=== PATIENT | female | born 1945 | race Caucasian/White ===

== ENCOUNTER → 2017-08-05 | Outpatient (CLI) | payer OTHER, MEDICARE ==
[~2017-08-05] VITALS: Ht 149.9 cm; Wt 49.9 kg
[~2017-08-05] MED LIST: CENTRUM SILVER1 EAC4 PO
--- NOTE | ~2017-08-05 | P ---
[facility] [place] [address] PROCEDURE REPORT Name: ARMINDA SUBRAMANIAN Room #: REG [facility]#: [id number] Admission: 08/05/17 Attend Phys: Mark Almazan Discharge: Date of : 49 Report #: [id number] THIS REPORT FOR: //name// CC: Mark Lucero MD DATE OF SERVICE: 08/05/2017 DATE OF SERVICE: 08/05/2017 PROCEDURE PERFORMED: Colonoscopy. HISTORY OF PRESENT ILLNESS: The patient is a 72-year-old female who presents today for screening colonoscopy. She denies any symptoms. She has family history of colon cancer in her father. DESCRIPTION OF PROCEDURE: The risks and benefits of the procedure were explained to the patient, those risks including but not limited to bleeding, perforation, the risk of sedation. She understood these risks and gave informed consent. Sedation was given using propofol per anesthesia. Next, a digital rectal exam was initially performed, which was normal. Next, using a standard Grabilityn colonoscope, the scope was placed in the patient's anus and advanced under direct vision to the cecum. The overall prep was excellent. The cecum and ileocecal valve were normal in appearance. The ascending, transverse, and descending colon were normal. A few small scattered diverticula were noted in the sigmoid colon, no evidence of inflammation, otherwise normal. The rectal mucosa was normal. On retroflexion, no abnormalities were noted. The scope was then withdrawn and the procedure terminated. The patient tolerated the procedure well. IMPRESSION: 1. Mild sigmoid diverticulosis. 2. Otherwise, normal colonoscopy. RECOMMENDATIONS: Repeat colonoscopy in 5 years due to family history. Thank you for allowing me to participate in her care. By: [id number] Mark Lowe MD /nt
== END | disposition home or self-care (01) ==
LOC: GI 07:50
DX: Z12.11 Encounter for screening for malignant neoplasm of colon (principal); K57.30 Diverticulosis of large intestine without perforation or abscess without bleeding; Z80.0 Family history of malignant neoplasm of digestive organs; Z91.040 Latex allergy status; Z98.890 Other specified postprocedural states; Z88.2 Allergy status to sulfonamides
CPT/HCPCS: G0105; 62110; 62900

== ENCOUNTER → 2018-11-11 | Outpatient (CLI) | payer OTHER, MEDICARE | LOC: RAD 10:49 | DX: M25.512 Pain in left shoulder (principal); W19.XXXA Unspecified fall, initial encounter; Y93.89 Activity, other specified; Y92.89 Other specified places as the place of occurrence of the external cause; Y99.8 Other external cause status ==

== ENCOUNTER → 2019-03-15 | Outpatient (CLI) | payer OTHER, MEDICARE | LOC: CAT 08:00 | DX: J47.9 Bronchiectasis, uncomplicated (principal); R91.8 Other nonspecific abnormal finding of lung field; Z88.8 Allergy status to other drugs, medicaments and biological substances; Z88.2 Allergy status to sulfonamides; Z91.040 Latex allergy status ==

== ENCOUNTER → 2019-06-03 | Outpatient (CLI) | payer OTHER, MEDICARE ==
[~2019-06-03] VITALS: Ht 144.8 cm; Wt 49.9 kg
--- NOTE | 2019-06-13 11:00 | P ---
[facility] [place] [address] PROCEDURE REPORT Name: ARMINDA SUBRAMANIAN Room #: REG [facility]#: [id number] Admission: 06/03/19 Attend Phys: Mark Almazan Discharge: Date of : 49 Report #: [id number] THIS REPORT FOR: //name// CC: Mark Lucero DATE OF SERVICE: 06/03/2019 PROCEDURE PERFORMED: Upper endoscopy with biopsies and esophageal dilation. HISTORY OF PRESENT ILLNESS: The patient is a 74-year-old female seen in the office on 05/10/2019 with complaints of dysphagia. No previous history of upper endoscopy. She apparently had an upper GI on 03/23/2019, which showed a small hiatal hernia. No evidence of esophageal stricture or mass. Plan is for EGD. She does report intermittent diarrhea as well. DESCRIPTION OF PROCEDURE: The risks and benefits of the procedure were explained to the patient, those risks including, but not limited to, bleeding, perforation and the risk of sedation. She understood these risks and gave informed consent. Sedation was given using propofol per anesthesia. Next, using a standard Olympus upper endoscope, the scope was placed in the patient's mouth and advanced under direct vision through the esophagus, stomach and into the second portion of the duodenum. The esophagus was normal throughout. The GE junction was normal. No evidence of esophagitis or stricture. Overall, the gastric mucosa was normal. The pylorus was normal and patent. The duodenal bulb, first and second portion were all normal. Biopsies were obtained to rule out the possibility of celiac sprue. The scope was then brought back up into the patient's stomach and a Savary guidewire was inserted through the scope leaving the guidewire in place as the scope was then withdrawn. Next, a 51-Nepali Savary dilation of the esophagus was then performed without difficulty. The wire and dilator were removed. The scope was reintroduced into the patient's stomach. There was no evidence of mucosal tear after dilation. The scope was then withdrawn and the procedure terminated. The patient tolerated the procedure well. IMPRESSION: 1. Small hiatal hernia. 2. Otherwise, normal upper endoscopy. RECOMMENDATIONS: 1. Await biopsy results. 2. Observe the patient post dilation. 3. The patient could use PPI therapy on a p.r.n. basis for heartburn. 4. If dysphagia continues, consider esophageal manometry. [address] [address] PROCEDURE REPORT Name: ARMINDA SUBRAMANIAN [facility] [id number] Admission: 06/03/19 Attend Phys: Mark Almazan Discharge: Date of : 49 Report #: [id number] Thank you for allowing me to participate in her care. <ELECTRONICALLY SIGNED> By: Mark Lowe MD 06/13/19 1100 1145 04 Mark Lowe, /batsheva
== END | disposition home or self-care (01) ==
LOC: GI 09:31
DX: R13.19 Other dysphagia (principal); K44.9 Diaphragmatic hernia without obstruction or gangrene; K21.9 Gastro-esophageal reflux disease without esophagitis; Z91.040 Latex allergy status; Z98.890 Other specified postprocedural states; Z88.2 Allergy status to sulfonamides
CPT/HCPCS: 62110; 62900

== ENCOUNTER → 2019-09-16 | Outpatient (CLI) | payer OTHER, MEDICARE ==
--- NOTE | 2019-09-16 11:42 | 2DMMODE ---
[facility] [place] [address] 2 D/M-MODE ECHOCARDIOGRAM Name: ARMINDA SUBRAMANIAN Room #: REG [facility]#: [id number] Admission: 09/16/19 Attend Phys: Thomas Lucero, Discharge: Date of : 49 Report #: [id number] THIS REPORT FOR: //name// APPROVED REPORT Study performed: 09/16/2019 09:59:54 EXAM: Comprehensive 2D, Doppler, and color-flow Echocardiogram Patient Location: Out-Patient Status: routine BSA: 1.52 HR: 58 bpm BP: 178/92 mmHg Rhythm: Sinus Irregular Other Information Study Quality: Good Indications Ascending Aorta Dilatation 2D Dimensions RVDd: 38.51 mm IVSd: 10.45 (7-11mm) LVOT Diam: 20.10 (18-24mm) LVDd: 40.60 mm PWd: 9.40 (7-11mm) Ascending Ao: 38.33 (22-36mm) LVDs: 26.07 (25-40mm) Aortic Root: 35.29 mm Volumes Left Atrial Volume (Systole) Single Plane 4CH: 37.14 mL Single Plane 2CH: 64.00 mL LA ESV Index: 36.00 mL/m2 Aortic Valve AoV Peak Saji.: 1.44 m/s AO Peak Gr.: 8.25 mmHg LVOT Max P.15 mmHg LVOT Max V: 1.02 m/s PEDRO LUIS Vmax: 2.25 cm2 AI Vmax: 4.37 m/s AI [place]: 2.43 m/s2 AI PHT: 521.72 ms Mitral Valve [facility] [address] [place] [address] 2 D/M-MODE ECHOCARDIOGRAM Name: ARMINDA SUBRAMANIAN Room #: [facility]#: [id number] Admission: 09/16/19 Attend Phys: Thomas Lucero, Discharge: Date of : 49 Report #: [id number] E/A Ratio: 1.8 MV Decel. Time: 221.77 ms MV E Max Saji.: 0.72 m/s MV A Saji.: 0.41 m/s MV PHT: 64.31 ms IVRT: 65.74 ms Pulmonary Valve PV Peak Saji.: 0.94 m/s PV Peak Gr.: 3.55 mmHg Pulmonary Vein P Vein S: 0.64 m/s P Vein A: 0.31 m/s P Vein D: 0.88 m/s P Vein A Dur.: 114.2 msec P Vein S/D Ratio: 0.73 Tricuspid Valve TR Peak Saji.: 3.06 m/s RAP Estimate: 10.00 mmHg TR Peak Gr.: 37.42 mmHg PA Pressure: 47.00 mmHg Left Ventricle The left ventricle is normal size. There is normal LV segmental wall motion. There is normal left ventricular wall thickness. The left ventricular systolic function is normal. LVEF is 55-60%. Diastolic function is difficult to assess to due arrhythmia. Right Ventricle The right ventricle is normal size. The right ventricular systolic function is normal. Atria Left atrium is mildly dilated. Small PFO is noted with color doppler. Right atrium is mildly dilated. Aortic Valve The aortic valve is normal in structure. Mild to moderate aortic regurgitation. There is no aortic valvular stenosis. Mitral Valve The mitral valve is normal in structure. Mild to moderate mitral regurgitation. No evidence of mitral valve stenosis. Tricuspid Valve The tricuspid valve is normal in structure. Mild to moderate tricuspid regurgitation. Estimated PAP is 47mmHg. [address] [address] 2 D/M-MODE ECHOCARDIOGRAM Name: ARMINDA SUBRAMANIAN [facility] [id number] Admission: 09/16/19 Attend Phys: Thomas Lucero, Discharge: Date of : 49 Report #: [id number] Pulmonic Valve The pulmonary valve is normal in structure. Eccentric Mild pulmonic regurgitation. Great Vessels The aortic root is normal in size. The ascending aorta is mildly dilated at 3.9cm. IVC is normal in size and collapses <50% with inspiration. Pericardium There is no pericardial effusion. <Conclusion> The left ventricle is normal size. LVEF is 55-60%. Left atrium is mildly dilated. Right atrium is mildly dilated. Small PFO is noted with color doppler. The aortic valve is normal in structure. Mild to moderate aortic regurgitation. The mitral valve is normal in structure. Mild to moderate mitral regurgitation. The tricuspid valve is normal in structure. Mild to moderate tricuspid regurgitation. Estimated PAP is 47mmHg. The ascending aorta is mildly dilated at 3.9cm. There is no pericardial effusion. <ELECTRONICALLY SIGNED> By: Placido Ruby MD 09/16/19 1141 1141 114 Placido Ruby MD /INF
== END ==
LOC: CV 09:16
DX: I08.8 Other rheumatic multiple valve diseases (principal); I77.810 Thoracic aortic ectasia

== ENCOUNTER → 2019-09-26 | Outpatient (CLI) | payer OTHER | LOC: CAT 08:34 | DX: Z13.6 Encounter for screening for cardiovascular disorders (principal); E78.00 Pure hypercholesterolemia, unspecified; I25.10 Atherosclerotic heart disease of native coronary artery without angina pectoris ==

== ENCOUNTER → 2020-05-07 | Outpatient (CLI) | payer OTHER, MEDICARE ==
[2020-05-07 08:52] LABS: CREATININE 0.8 mg/dL (0.6-1.0)
== END ==
LOC: CAT 06:54
PROVIDERS: ATTEND Family Medicine
DX: R91.8 Other nonspecific abnormal finding of lung field (principal); M47.9 Spondylosis, unspecified; E27.8 Other specified disorders of adrenal gland

== ENCOUNTER → 2021-07-23 | Outpatient (CLI) | payer OTHER, MEDICARE | LOC: SJCVCIMAG 13:29 | PROVIDERS: ATTEND Internal Medicine | DX: I35.1 Nonrheumatic aortic (valve) insufficiency (principal); R00.2 Palpitations; I10 Essential (primary) hypertension; Z88.2 Allergy status to sulfonamides; Z91.040 Latex allergy status; Z79.82 Long term (current) use of aspirin; Z79.899 Other long term (current) drug therapy ==